=== PATIENT | male | born 1980 ===

== ENCOUNTER 2024-12-11 14:18 | Emergency (ER) | payer OTHER ==
[2024-12-11 15:46] LABS: APPEARANCE,URINE CLEAR (CLEAR); BILIRUBIN,URINE NEGATIVE (NEGATIVE); COLOR,URINE YELLOW (YELLOW); GLUCOSE,URINE NEGATIVE (NEGATIVE); KETONES,URINE NEGATIVE (NEGATIVE); LEUKOCYTE ESTERASE,URINE NEGATIVE (NEGATIVE); NITRITE,URINE NEGATIVE (NEGATIVE); OCCULT BLOOD,URINE NEGATIVE (NEGATIVE); PROTEIN,URINE NEGATIVE (NEGATIVE); UROBILINOGEN,URINE 0.2 EU/dL (0.2-1.0)
[2024-12-11 15:55] LABS: AMORPHOUS SEDIMENT,URINE NOT SEEN; BACTERIA,URINE FEW; EPITHELIAL CELLS,URINE RARE; MUCUS,URINE RARE; RBC,URINE NOT SEEN (0-5); WBC,URINE 0-5 (0-5)
== END 2024-12-11 18:30 ==
LOC: JP.ED 14:18
DX: R16.1 Splenomegaly, not elsewhere classified (principal); I10 Essential (primary) hypertension; Z91.012 Allergy to eggs; Z91.018 Allergy to other foods; Z79.899 Other long term (current) drug therapy
CPT/HCPCS: 74176; 74176-26; 81001; 99284